=== PATIENT | female | born 1940 | race Caucasian/White ===

== ENCOUNTER → 2017-11-03 | Emergency (ER) | payer OTHER ==
[~2017-11-03] VITALS: Ht 160 cm; Wt 48.5 kg
[~2017-11-03] MED LIST: CLONAZEPAM1 MG; LOSARTAN POTASS25 MG; PROTONIX20 MG; SYNTHROID75 MCG
== END | disposition home or self-care (01) ==
LOC: ER 13:16
DX: S30.0XXA Contusion of lower back and pelvis, initial encounter (principal); S80.02XA Contusion of left knee, initial encounter; S90.01XA Contusion of right ankle, initial encounter; W01.198A Fall on same level from slipping, tripping and stumbling with subsequent striking against other object, initial encounter; Y93.01 Activity, walking, marching and hiking; Y92.488 Other paved roadways as the place of occurrence of the external cause

== ENCOUNTER 2018-01-26 10:48 | Outpatient (CLI) | payer OTHER | END 2018-01-26 15:56 | disposition home or self-care (01) | LOC: TOM 10:48 | DX: R05 Cough (principal) ==